=== PATIENT | female | born 1980 | race Caucasian/White ===

== ENCOUNTER 2021-07-10 09:51 | Emergency (ER) | payer OTHER ==
[~2021-07-10] VITALS: Ht 167.6 cm; Wt 145.2 kg
[~2021-07-10 09:51] MED LIST: ALBIPROI INH; ALBU90OI INH; AMOCLA875 PO; AMOX500 PO; ASPI325 PO; Adipex-P37.5 M1 PO; Amoxicillin500 MG PO; BIRTH CONTROL; BP MED; CEPH500 PO; CHOLESTEROL MED; CLIN1TS TOP; CLIN300 PO; CLOT10 SUSW; CYCL10 PO; Coumadin5 MG PO; ERGO400 PO; HYDACE5 PO; HYDACE5325 PO; HYDHCL25 PO; HYDPAM50 PO; IBUP800 PO; LEVFLO500 PO; LISI20 PO; LORA.5 PO; LOVENOX; MEDR150I; MELO7.5 PO; METPRE4DP PO; MULVITMINE; Monodox100 MG PO; NAPR500 PO; NORCO 7.5-3251 EAC1 PO; Norco 5-325 Ta1 EACH PO; OMEP20ER PO; OXYACE5T PO; PENVK500 PO; PRED10 PO; PRED20 PO; PROCODE120 PO; PROM25 PO; Percocet 5-3251 EACH PO; Prednisone10 MG PO; Prozac20 MG; Prozac20 MG PO; RXHYD5325 PO; RXOXYACE PO; Robaxin-750750 MG PO; SULTRIDS PO; TRAM50 PO; Valium5 MG PO; Ventolin Soln3 ML INH; Verotin-Gr Cap1 EACH PO
[2021-07-10] MEDS ORDERED: FLUOXETINE HCL20 M2 PO (10:09)
[2021-07-10] MEDS ORDERED: HYDR1TAB94 PO (11:30)
== END 2021-07-10 12:15 | disposition home or self-care (01) ==
LOC: ER 09:51
DX: S20.02XA Contusion of left breast, initial encounter (principal); V49.9XXA Car occupant (driver) (passenger) injured in unspecified traffic accident, initial encounter; Z79.899 Other long term (current) drug therapy; F17.210 Nicotine dependence, cigarettes, uncomplicated
CPT/HCPCS: 71101; 99283-25

== ENCOUNTER → 2022-07-12 | Outpatient (CLI) | payer OTHER ==
[~2022-07-12] MED LIST changes: +FLUOXETINE HCL20 M2 PO; +HYDR1TAB94 PO
[2022-07-12 11:12] LABS: BASOPHILS ABSOLUTE AUTO 0.01 K/mm3 (0.00-0.23); BASOPHILS PERCENT AUTO 0 % (0-2); EOSINOPHILS ABSOLUTE AUTO 0.27 K/mm3 (0.00-0.68); EOSINOPHILS PERCENT AUTO 3 % (0-6); Hemoglobin 13.8 g/dL (11.5-16.0); IMMATURE GRAN ABSOLUTE AUTO 0.04 K/mm3 (0.00-0.10); IMMATURE GRAN PERCENT AUTO 0 % (0-1); LYMPHOCYTES ABSOLUTE AUTO 2.23 K/mm3 (0.84-5.20); LYMPHOCYTES PERCENT AUTO 21 % (21-46); MONOCYTES ABSOLUTE AUTO 0.45 K/mm3 (0.16-1.47); MONOCYTES PERCENT AUTO 4 % (4-13); Mean Corpuscular HGB 27.3 pg (26.0-34.0); Mean Corpuscular HGB Conc 33.7 g/dL (31.5-36.5); Mean Corpuscular Volume 81 fL (80-100); Mean Platelet Volume 9.9 fL (9.1-12.4); NEUTROPHILS ABSOLUTE AUTO 7.83 K/mm3 (1.96-9.15); NEUTROPHILS PERCENT AUTO 72 % (41-73); Platelet Count 266 K/mm3 (150-400); RDW Coefficient Variation 13.4 % (11.7-14.2); RDW Standard Deviation 39.1 fL (35.1-46.3); Red Blood Cell Count 5.06 M/mm3 (3.80-5.20); White Blood Cell Count 10.83 K/mm3 (4.00-11.30)
[2022-07-12 11:22] LABS: Bun/Creatinine Ratio 16.4 (12.0-20.0); Calcium, Blood 9.3 mg/dL (8.5-10.1); Creatinine, Blood 0.55 mg/dL (0.40-1.00); Potassium, Blood 4.1 mmol/L (3.5-5.5)
== END | disposition home or self-care (01) ==
LOC: LAB 11:07 → LAB SHORT 11:07
PROVIDERS: Emergency Medicine
DX: R00.2 Palpitations (principal)
CPT/HCPCS: 80048; 84484; 85025

== ENCOUNTER → 2022-11-28 | Outpatient (CLI) | payer OTHER | LOC: LAB SHORT 15:47 → LAB 15:47 | DX: N39.0 Urinary tract infection, site not specified (principal) | CPT/HCPCS: 87077; 87086; 87186 ==